=== PATIENT | female | born 1970 | race Caucasian/White ===

== ENCOUNTER 2017-04-12 17:09 | Emergency (ER) | payer OTHER ==
[2017-04-12 18:15] VITALS: BP 115/77
--- NOTE | 2017-04-12 19:36 | UC ---
Skin Complaint HPI - HPI Summary HPI Summary: patient noticed an engorged tick in the upper right back ,tried to remove it, some left, has been on she thinks for 3 days - History of Current Complaint Chief Complaint: UCSkin Time Seen by Provider: 04/12/17 19:13 Stated Complaint: TICK BITE Hx Obtained From: Patient Hx Last Menstrual Period: CURRENT ?: No Onset/Duration: Sudden Onset, Lasting Days Skin Exposure Onset/Duration: Days Ago Timing: Constant Onset Severity: Mild Current Severity: Mild Character: Redness, Painful Aggravating Factor(s): Nothing Alleviating Factor(s): Nothing Related History: Possible Reaction to: Insect - Allergy/Home Medications Allergies/Adverse Reactions: Allergies Allergy/AdvReac Type Severity Reaction Status Date / Time No Known Allergies Allergy Verified 04/12/17 18:15 Home Medications: Home Medications Drospirenone-Ethinyl Estradiol [Marianne 3-0.02 mg] 1 tab PO DAILY 04/12/17 [History Confirmed 04/12/17] Review of Systems Constitutional: Negative Skin: Negative, Other - tick bite Eyes: Negative ENT: Negative Respiratory: Negative Cardiovascular: Negative Gastrointestinal: Negative Genitourinary: Negative Motor: Negative Neurovascular: Negative Musculoskeletal: Negative Neurological: Negative Psychological: Negative Is Patient Immunocompromised?: No All Other Systems Reviewed And Are Negative: Yes PMH/Surg Hx/FS Hx/Imm Hx - Surgical History Surgical History: None - Social History Alcohol Use: Occasionally Substance Use Type: None Smoking Status (MU): Former Smoker Length of Time of Smoking/Using Tobacco: 25 YRS When Did the Patient Quit Smoking/Using Tobacco: 2011 Physical Exam Triage Information Reviewed: Yes Appearance: Well-Appearing, Well-Nourished, Pain Distress Vital Signs: Initial Vital Signs Temp 98 F 04/12/17 18:09 Pulse 71 04/12/17 18:09 Resp 20 04/12/17 18:09 BP 115/77 04/12/17 18:09 Pulse Ox 99 04/12/17 18:09 Vital Signs Reviewed: Yes Eye Exam: Normal ENT Exam: Normal Dental Exam: Normal Neck exam: Normal Respiratory Exam: Normal Cardiovascular Exam: Normal Abdominal Exam: Normal Musculoskeletal Exam: Normal Neurological Exam: Normal Skin: Positive: Other - small remainder of tick in upper right back, small area of erythema surronding tick Course/Dx - Course Course Of Treatment: hx obtained, exam performed, meds reviewed, given one time dose of doxycyline, educated on signs and symtpoms of lyme - Differential Diagnoses - Skin Complaint Differential Diagnoses: Tick Born Illness - Diagnoses Provider Diagnoses: tick bite Discharge - Discharge Plan Condition: Stable Disposition: HOME Prescriptions: DOXYcycline CAP(*) [DOXYcycline 100MG CAP(*)] 200 mg PO DAILY #2 cap Patient Education Materials: Tick Bite (ED) Additional Instructions: 1. take the 2 tabs of docycyline 2. monitor of signs of lyme
== END 2017-04-12 19:52 | disposition home or self-care (01) ==
LOC: UCCORT 17:09
DX: S20.461A Insect bite (nonvenomous) of right back wall of thorax, initial encounter (principal); W57.XXXA Bitten or stung by nonvenomous insect and other nonvenomous arthropods, initial encounter; Z87.891 Personal history of nicotine dependence
CPT/HCPCS: 99212; G0463